=== PATIENT | male | born 1965 | race Caucasian/White ===

== ENCOUNTER → 2017-11-09 | Outpatient (CLI) | payer OTHER ==
[~2017-11-09] MED LIST: ANTI-DIARRHEA2 MG PO; ANTIDEPRESSANT PO; AVAPRO150 MG PO; DILANTIN PO; KEPPRA750 MG PO; NOHOMEMEDS; NORVASC10 MG PO
== END | disposition home or self-care (01) ==
LOC: AMB 14:00
DX: K50.912 Crohn's disease, unspecified, with intestinal obstruction (principal); K63.3 Ulcer of intestine; K64.8 Other hemorrhoids; Z90.49 Acquired absence of other specified parts of digestive tract; I10 Essential (primary) hypertension; G40.909 Epilepsy, unspecified, not intractable, without status epilepticus; Z87.891 Personal history of nicotine dependence; Z82.49 Family history of ischemic heart disease and other diseases of the circulatory system; Z82.0 Family history of epilepsy and other diseases of the nervous system; Z88.0 Allergy status to penicillin
CPT/HCPCS: 88305; 93005